=== PATIENT | male | born 1980 | race Hispanic/Latino ===

== ENCOUNTER 2017-03-04 09:49 | Emergency (ER) | payer OTHER ==
[~2017-03-04 09:49] MED LIST: DIPRIVAN 10 MG/ML 1,000 MG/100 ML BOTTLE IV ONE; ZOFRAN IV ONE
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
[2017-03-04] MEDS ORDERED: ARTIFICIAL TEARS OPHTH OINT OU PRN ×2 (10:09→13:18)
[2017-03-04] MEDS ORDERED: VASELINE LIP THERAPY TP PRN ×2 (10:09→13:18)
[2017-03-04 10:14] LABS: Basophils # (Auto) 0.1 K/mm3 (0.0-0.1); Basophils % (Auto) 0.6 % (0.0-1.8); Eosinophils # (Auto) 0.1 K/mm3 (0.0-0.4); Eosinophils % (Auto) 0.6 % (0.0-4.3); Hematocrit 48.5 % (35.5-45.6); Lymphocytes # (Auto) 1.8 K/mm3 (1.2-5.4); Lymphocytes % (Auto) 10.3 % (13.4-35.0); Mean Corpuscular HGB Conc 33 % (32-34); Mean Corpuscular Hemoglobin 30 pg (28-32); Mean Corpuscular Volume 90 fl (84-94); Monocytes # (Auto) 1.4 K/mm3 (0.0-0.8); Monocytes % (Auto) 7.8 % (0.0-7.3); Platelet Count 292 K/mm3 (140-440); Red Blood Count 5.39 M/mm3 (3.65-5.03); Red Cell Distribution Width 13.6 % (13.2-15.2)
[2017-03-04 10:23] LABS: Bacteria,Urine 1+ /HPF (Negative); Bilirubin,Urine NEG (Negative); Blood,Urine NEG (Negative); Color,Urine Yellow (Yellow); Mucus,Urine FEW /HPF; Nitrite,Urine NEG (Negative); Protein,Urine <15 mg/dL mg/dL (Negative)
[2017-03-04 10:23] LABS: INR 0.94 (0.87-1.13)
[2017-03-04] MEDS ORDERED: VERSED IV NR (10:27)
[2017-03-04 10:29] LABS: Creatine Kinase MB 7.1 ng/mL (0.0-4.0)
--- NOTE | 2017-03-04 10:30 | XRay Report ---
Portable chest: Tube placements. Endotracheal and nasogastric tubes are in good positions. The lungs are clear and the mediastinal contour is unremarkable. No vascular congestion. No prior exam for comparison. Impression: Well-positioned life-support tubes. No cardiopulmonary pathology identified.
[2017-03-04 10:32] LABS: BUN/Creatinine Ratio 22; Blood Urea Nitrogen 13 mg/dL (9-20); Calcium 8.6 mg/dL (8.4-10.2); Hemolysis Index 37
[2017-03-04 10:33] LABS: Alanine Aminotransferase 138 units/L (7-56); Albumin 4.1 g/dL (3.9-5); Bilirubin,Direct 0.2 mg/dL (0-0.2); Lipase 30 units/L (13-60)
[2017-03-04] MEDS ORDERED: VERSED IV ONE (11:00)
[2017-03-04] MEDS ORDERED: AMIDATE IV ONE (11:00)
[2017-03-04] MEDS ORDERED: QUELICIN ONE (11:00)
[2017-03-04] MEDS ORDERED: NACL 0.9% 500 ML IV SCH ×2 (11:00→14:00)
[2017-03-04] MEDS ORDERED: DIPRIVAN 10 MG/ML 1,000 MG/100 ML BOTTLE IV SCH (11:00)
[2017-03-04 11:20] LABS: Amphetamine Screen,Urine PRESUMPTIVE NEGATIVE; Benzodiazepines Screen,Urine PRESUMPTIVE NEGATIVE; Cannabinoid Screen,Urine PRESUMPTIVE NEGATIVE; Cocaine Screen,Urine PRESUMPTIVE NEGATIVE; Methadone Screen,Urine PRESUMPTIVE NEGATIVE; Opiate Screen,Urine PRESUMPTIVE NEGATIVE
--- NOTE | 2017-03-04 11:53 | Cat Scan Report ---
CT head without contrast: ams Images of the posterior fossa are moderately compromised by streak artifact due to motion. No suspicious finding. Images of the supratentorial region are unremarkable. No evidence of hemorrhage, mass effect, or extracerebral collection. No fracture or bone lesion identified. There is almost complete mucoperiosteal opacity of the maxillary and ethmoid sinuses with some scattered aeration. Moderate circumferential thickening is noted in the left frontal sinus and to a lesser extent the right frontal sinus and both sphenoid sinuses. No fluid layering identified. No bone distraction noted. Impressions: 1. Compromised intracranial evaluation with no suspicion of significant pathology. 2. Diffuse, severe sinusitis.
[2017-03-04] MEDS ORDERED: ROCEPHIN/NS 1 GM/50 ML 1 GM/50 ML BAG IV ONE (12:09)
[2017-03-04] MEDS ORDERED: PROVENTIL IH PRN (12:11)
[2017-03-04] MEDS ORDERED: ALUM-MAG HYDROX-SIMETH 200-200-20MG/5ML PO PRN (12:11)
[2017-03-04] MEDS ORDERED: MILK OF MAGNESIA PO PRN (12:11)
[2017-03-04] MEDS ORDERED: DULCOLAX PR PRN (12:11)
[2017-03-04] MEDS ORDERED: VANCOMYCIN VIAL IV ONE (12:14)
[2017-03-04] MEDS ORDERED: NACL 0.9% 1000 ML IV ONE (12:14)
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
[2017-03-04] MEDS ORDERED: BABY ASPIRIN PO ONE (12:23)
[2017-03-04] MEDS ORDERED: VANCOMYCIN 2,000 MG in NACL 0.9% 500 ML 500 ML IV SCH (12:30)
[2017-03-04] MEDS ORDERED: VANCOMYCIN PHARMACY TO DOSE IV SCH (13:00)
[2017-03-04] MEDS ORDERED: fentaNYL DRIP Premix 2,000 MCG/100 ML BAG IV ONE (13:20)
[2017-03-04] MEDS ORDERED: ZOFRAN ONE (13:21)
[2017-03-04] MEDS ORDERED: ZOSYN/NS 4.5GM/100ML 4.5 GM/100 ML VIAL IV SCH (14:00)
[2017-03-04] MEDS ORDERED: fentaNYL DRIP Premix 2,000 MCG/100 ML BAG IV SCH (14:00)
--- NOTE | 2017-03-04 14:11 | XRay Report ---
Portable chest: Tube placement. Both endotracheal and nasogastric tubes are in good positions. No significant change noted compared to prior exam of 10:20 AM. The lungs remain clear and the heart normal in size. Impression: No acute findings.
[2017-03-04] MEDS ORDERED: DIPRIVAN 10 MG/ML 1,000 MG/100 ML BOTTLE IV ONE (14:17)
[2017-03-04] MEDS ORDERED: cefTRIAXone 1 GM in NACL 0.9% 20 ML IV ONE (15:45)
[2017-03-04 17:35] VITALS: BP 124/69
[2017-03-04] MEDS ORDERED: PEPCID IV SCH (22:00)
== END 2017-03-04 18:01 | disposition admitted as inpatient to this hospital (09) ==
LOC: ED 09:49 → UNDOADMIN 12:11 → CC1 12:11 → 3A 16:29
DX: R40.20 Unspecified coma (principal); T65.91XA Toxic effect of unspecified substance, accidental (unintentional), initial encounter; J32.4 Chronic pansinusitis; Y92.89 Other specified places as the place of occurrence of the external cause
CPT/HCPCS: 31500; 36415; 70450; 71010; 80048; 80074; 80307; 81001; 82140; 82550; 82553; 82803; 83690; 83735; 83880; 84484; 85025; 85610; 85730; 87040; 87070; 87205; 93005; 93010; 94760; 96361; 96365; 96366; 96368; 96375; 99291; G0480; J0330; J0696; J2250; J2405; J2543; J2704; J3010; J7030; J7040; 80320; 94002; 99285; J3370

== ENCOUNTER 2020-11-14 13:03 | Emergency (ER) | payer SELFPAY ==
[2020-11-14] MEDS ORDERED: NALOXONE 0.4 MG/1 ML INJ IV PRN (13:19)
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
== END 2020-11-14 13:33 | disposition left against medical advice (07) ==
LOC: ED 13:03
DX: Z00.8 Encounter for other general examination (principal); Z53.21 Procedure and treatment not carried out due to patient leaving prior to being seen by health care provider